=== PATIENT | female | born 1990 | race Caucasian/White ===

== ENCOUNTER → 2024-09-16 | Outpatient (CLI) | payer BC ==
[2024-09-16 14:42] LABS: HEMATOCRIT 38.2 % (37.0-47.0); MEAN CELL VOLUME 113.4 fl (81.0-99.0); MEAN CORPUSCULAR HGB CONC 33.5 g/dl (33.0-37.0); PLATELET COUNT AUTOMATED 263 10*3/uL (130-400); RED BLOOD COUNT 3.37 10*6/uL (4.10-5.10); RED CELL DISTRI WIDTH 13.8 % (0-14.5); WHITE BLOOD COUNT 6.2 10*3/uL (4.8-10.8)
[2024-09-16 14:43] LABS: MANUAL DIFF REFLEX YES
[2024-09-16 15:01] LABS: ALKALINE PHOSPHATASE 58 U/L (46-116); CHLORIDE 106 mmol/L (98-107); CHOLESTEROL 174 mg/dL (<200); LDL CHOLESTEROL 107 mg/dL (9-159); SGPT/ALT 25 U/L (5-49); TOTAL PROTEIN 6.5 gm/dL (6.0-8.0); TRIGLYCERIDES 150 mg/dl (<150)
[2024-09-16 15:08] LABS: BUN < 5 mg/dl (9-23)
[2024-09-16 15:11] LABS: BASOPHILS 1 % (0-1); PLATELET SUFFICIENCY NORMAL (NORMAL); TARGET CELLS FEW; TOTAL CELLS COUNTED 100 #CELLS
[2024-09-16 15:12] LABS: POLYCHROMASIA SLIGHT
== END | disposition home or self-care (01) ==
LOC: LAB 13:50
PROVIDERS: Internal Medicine; ATTEND Nurse Practitioner Family
DX: R53.83 Other fatigue (principal); E66.9 Obesity, unspecified; L65.9 Nonscarring hair loss, unspecified; R11.0 Nausea

== ENCOUNTER → 2024-09-18 | Outpatient (CLI) | payer BC | END | disposition home or self-care (01) | LOC: LAB 15:46 | PROVIDERS: ATTEND Dermatology | DX: E24.9 Cushing's syndrome, unspecified (principal) ==

== ENCOUNTER → 2024-10-04 | Outpatient (CLI) | payer BC | END | disposition home or self-care (01) | LOC: LAB 07:45 | PROVIDERS: ATTEND Internal Medicine | DX: E24.9 Cushing's syndrome, unspecified (principal); E88.819 Insulin resistance, unspecified ==

== ENCOUNTER → 2025-02-05 | Outpatient (CLI) | payer BC | END | disposition home or self-care (01) | LOC: LAB 09:45 | PROVIDERS: ATTEND Internal Medicine Endocrinology, Diabetes & Metabolism | DX: E24.9 Cushing's syndrome, unspecified (principal) ==

== ENCOUNTER → 2025-02-12 | Outpatient (CLI) | payer BC | END | disposition home or self-care (01) | LOC: LAB 07:22 | PROVIDERS: ATTEND Internal Medicine Endocrinology, Diabetes & Metabolism | DX: E24.9 Cushing's syndrome, unspecified (principal) ==

== ENCOUNTER → 2025-04-03 | Outpatient (CLI) | payer BC ==
[2025-04-03 17:50] LABS: MEAN CELL VOLUME 114.8 fl (81.0-99.0); MEAN CORPUSCULAR HGB 40.0 pg (27.0-31.0); MEAN PLATELET VOLUME 10.9 fl (9.6-12.3); NUCLEATED RED BLOOD CELL 0.0 % (0.0-0.0); NUCLEATED RED BLOOD CELL 0.0 10*3/uL (0.0-0.0); PLATELET COUNT AUTOMATED 152 10*3/uL (130-400); RED CELL DISTRI WIDTH 17.1 % (0-14.5)
[2025-04-03 17:53] LABS: MANUAL DIFF REFLEX YES
[2025-04-03 18:13] LABS: PLATELET SUFFICIENCY NORMAL (NORMAL)
[2025-04-03 18:16] LABS: FREE T4 1.09 ng/dl (0.89-1.76); LDL CHOLESTEROL 75 mg/dL (9-159); SGPT/ALT 10 U/L (5-49)
[2025-04-03 18:18] LABS: BUN < 5 mg/dl (9-23)
[2025-04-04 14:07] LABS: ANTI-DSDNA ANTIBODIES 5 IU/mL (0-9); ANTI-RNP ANTIBODIES 0.2 AI (0.0-0.9); ANTICHROMATIN ANTIBODIES <0.2 AI (0.0-0.9); ANTISCLERODERMA-70 AB 0.3 AI (0.0-0.9)
[2025-04-10 22:06] LABS: TESTOS, FREE 1.8 pg/mL (0.0-4.2)
== END | disposition home or self-care (01) ==
LOC: LAB 17:20
PROVIDERS: ATTEND Internal Medicine
DX: E24.9 Cushing's syndrome, unspecified (principal); E03.9 Hypothyroidism, unspecified; E88.819 Insulin resistance, unspecified; R53.82 Chronic fatigue, unspecified; M25.50 Pain in unspecified joint; N92.6 Irregular menstruation, unspecified; E66.9 Obesity, unspecified

== ENCOUNTER → 2025-06-18 | Outpatient (CLI) | payer BC ==
[2025-06-18 17:50] LABS: MANUAL DIFF REFLEX YES; MEAN CELL VOLUME 118.6 fl (81.0-99.0); MEAN CORPUSCULAR HGB 39.8 pg (27.0-31.0); MEAN PLATELET VOLUME 9.6 fl (9.6-12.3); NUCLEATED RED BLOOD CELL 0.0 % (0.0-0.0); NUCLEATED RED BLOOD CELL 0.0 10*3/uL (0.0-0.0); PLATELET COUNT AUTOMATED 178 10*3/uL (130-400); RED CELL DISTRI WIDTH 13.7 % (0-14.5)
[2025-06-18 18:09] LABS: PLATELET SUFFICIENCY NORMAL (NORMAL)
[2025-06-18 18:17] LABS: BUN < 5 mg/dl (9-23); LDL CHOLESTEROL 96 mg/dL (9-159); SGPT/ALT 10 U/L (5-49)
[2025-06-19 12:07] LABS: DHEA SULFATE 39.9 ug/dL (84.8-378.0)
[2025-06-24 11:07] LABS: 17-OH PROGESTERONE <10 ng/dL (.)
== END | disposition home or self-care (01) ==
LOC: LAB 16:52
PROVIDERS: ATTEND Internal Medicine Endocrinology, Diabetes & Metabolism
DX: E24.9 Cushing's syndrome, unspecified (principal); E66.813 Obesity, class 3